=== PATIENT | male | born 1960 ===

== ENCOUNTER 2017-09-09 15:46 | Inpatient (IN) | payer BC ==
--- NOTE | 2017-09-09 16:34 | ED PDOC ---
HPI: Headache <Lucas Newton III - Last Filed: 09/09/17 18:26> Chief Complaint (Provider): Headache, vomiting History Per: Patient History/Exam Limitations: no limitations Onset/Duration Of Symptoms: Hrs Current Symptoms Are (Timing): Still Present Quality: "Pain" Preceeding Symptoms: None Associated Symptoms: Vomiting Additional Complaint(s): 57 y/o M with PMHx of NIDDM, CABG and Hemorrhagic stroke presents to ED with c/ o frontal headache and vomiting since last night. Patient has had 3 vomits since last night NBNB associated with food ingestion. Headache is frontal, moderate, does not radiate and accompanied with mild photophobia. Denies paresthesias, weakness, fever, abd pain, diarrhea. Patient is taking all his meds including Aspirin. He took 1 advil this morning and headache improved temporarily. Denies nausea at this time. BP was measured at home Yesterday and systolic was 180s and as per patient's , came down after vomiting. 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 - Risk Factors SAH Risk Factors: Pos: Sudden Onset Of Pain Nest Degree Relative(s) W/SAH, Polycystic Kidney Disease, Marfan's Syndrome, Patt-Danlos Syndrome, Neurofibromatos, Type I, Worst Headache Of Life <Emilio Crump - Last Filed: 09/09/17 18:48> Time Seen by Provider: 09/09/17 16:19 Chief Complaint (Nursing): GI Problem Past Medical History Vital Signs: Last Vital Signs Temp 97.9 F 09/09/17 16:05 Pulse 79 09/09/17 17:45 Resp 20 09/09/17 17:45 BP 133/72 09/09/17 17:45 Pulse Ox 99 09/09/17 18:09 <Lucas Newton III - Last Filed: 09/09/17 18:26> Reviewed: Vital Signs Vital Signs: Last Vital Signs Temp 97.9 F 09/09/17 16:05 Pulse 77 09/09/17 16:05 Resp 16 09/09/17 16:05 BP 152/86 H 09/09/17 16:05 Pulse Ox 99 09/09/17 16:05 - Medical History PMH: CAD, Diabetes, HTN, Hyperlipidemia Denies: Chronic Kidney Disease - Surgical History Surgical History: CABG - Family History Family History: States: Unknown Family Hx <Emilio Crump - Last Filed: 09/09/17 18:48> - Home Medications Home Medications: Ambulatory Orders Medication Instructions Recorded Aspirin [Ecotrin] 81 mg PO DAILY 09/09/17 Carvedilol [Coreg] 3.125 mg PO Q12H 09/09/17 Cyanocobalamin [Vitamin B12] 250 mcg PO DAILY 09/09/17 Dexlansoprazole [Dexilant] 60 mg PO DAILY 09/09/17 Ergocalciferol (Vitamin D2) 50,000 unit PO SUN 09/09/17 [Vitamin D2] Linagliptin/Metformin HCl 1 tab PO BID 09/09/17 [Jentadueto 2.5 mg-1000 mg Tab] Losartan [Cozaar] 25 mg PO DAILY 09/09/17 Pioglitazone [Actos] 45 mg PO QPM 09/09/17 - Allergies Allergies/Adverse Reactions: Allergies Allergy/AdvReac Type Severity Reaction Status Date / Time No Known Allergies Allergy Verified 10/27/14 08:39 Review of Systems ROS Statement: Except As Marked, All Systems Reviewed And Found Negative Gastrointestinal: Positive for: Vomiting Neurological: Positive for: Headache <Emilio Crump - Last Filed: 09/09/17 18:48> Physical Exam - Physical Exam Appears: Positive for: Non-toxic Skin: Positive for: Normal Color, Warm Eye Exam: Positive for: Normal appearance, EOMI, PERRL, Nystagmus (Horizontal, unidirectional) Neck: Positive for: Normal, Painless ROM, Supple Cardiovascular/Chest: Positive for: Regular Rate, Rhythm. Negative for: Edema, Gallop Respiratory: Positive for: Normal Breath Sounds. Negative for: Crackles, Rales , Wheezing, Respiratory Distress Gastrointestinal/Abdominal: Positive for: Soft. Negative for: Tenderness, Distended, Guarding, Rebound Back: Negative for: L CVA Tenderness, R CVA Tenderness Extremity: Negative for: Tenderness, Swelling Neurologic/Psych: Positive for: Alert, Oriented. Negative for: Motor/Sensory Deficits, Aphasia <Emilio Crump - Last Filed: 09/09/17 18:48> - Laboratory Results Result Diagrams: 09/09/17 16:20 09/09/17 16:20 <Lucas Newton III - Last Filed: 09/09/17 18:26> - Laboratory Results Result Diagrams: 09/09/17 16:20 09/09/17 16:20 - ECG O2 Sat by Pulse Oximetry: 99 - Progress ED Course And Treament: Revaluated at 17:45. Stable. TnI received elevated. Patient denies CP or abd pain. CT of the head pending oficial report to r/o hemorrhagic stroke. Holding anticoag til then. PMD Dr Mantilla made aware. Patient had CABG at [facility] in [facility]. Saw [address] Durbin(Cardiology) more than a year ago for f/u. On aspirin daily. <Emilio Crump - Last Filed: 09/09/17 18:48> Medical Decision Making Medical Decision Making: attending note Pt seen w resident and agree w findings 57yo male w hx CAD also ICH 2014, now on aspirin took today C/o headache, nausea, denies chest pain or dyspnea, denies visual changes or change speech/weakness or sensation EKG nonspecific changes, Q wave inferiorly CT brain acute to subacute infarct occipital 620p D/w Dr Ponce neurology- no contraindication to anticoagulation now 625p d/w Dr Maurer cardiology (pt last saw their group 2014, pt wants to continue w Dr Durbin)- agree w AC start heparin not lovenox Admitted to Dr Mantilla who I spoke to earlier. Critical care time 45minutes. <Lucas Newton III - Last Filed: 09/09/17 18:26> Medical Decision Making: Acute headache and vomiting Hx of hemorrhagic stroke F/U CT head Blood work Toradol once <Emilio Crump - Last Filed: 09/09/17 18:48> Disposition - Patient ED Disposition Is Patient to be Admitted: Yes Counseled Patient/Family Regarding: Studies Performed, Diagnosis - Disposition Disposition Time: 17:45 <Lucas Newton III - Last Filed: 09/09/17 18:26> <Emilio Crump - Last Filed: 09/09/17 18:48> - Clinical Impression Clinical Impression: NSTEMI (non-ST elevated myocardial infarction) - Disposition Condition: FAIR
[2017-09-09 16:46] LABS: BASO # 0.1 K/uL (0.0-0.2); BASO % 1.1 % (0.0-2.0); EOS # 0.1 K/uL (0.0-0.7); EOS % 0.7 % (0.0-4.0); HEMATOCRIT 38.2 % (35.0-51.0); LYMPH % 20.9 % (20.0-40.0); MEAN CELL VOLUME 85.5 fl (80.0-94.0); MEAN CORPUSCULAR HEMOGLOBIN 27.7 pg (27.0-31.0); MEAN CORPUSCULAR HGB CONC 32.4 g/dL (33.0-37.0); MEAN PLATELET VOLUME 9.3 fl (7.2-11.7); MONO # 0.8 K/uL (0.0-0.8); MONO % 8.3 % (0.0-10.0); NEUT # 6.5 K/uL (1.8-7.0); RED CELL DISTRIBUTION WIDTH 13.1 % (11.5-14.5); WHITE BLOOD COUNT 9.4 K/uL (4.8-10.8)
[2017-09-09 16:52] LABS: ALB/GLOB RATIO 1.3 (1.0-2.1); ALKALINE PHOSPHATASE 51 U/L (38-126); ALT/SGPT 24 U/L (21-72); AST/SGOT 19 U/L (17-59); BILIRUBIN,TOTAL 0.6 mg/dl (0.2-1.3); BLOOD UREA NITROGEN 10 mg/dl (9-20); CALCIUM 9.5 mg/dL (8.4-10.2); CARBON DIOXIDE 27 mmol/L (22-30); CHLORIDE 101 mmol/L (98-107); GFR AFRICAN-AMERICAN > 60; GLUCOSE,RANDOM 148 mg/dL (75-110); POTASSIUM 4.1 MMOL/L (3.6-5.0); SODIUM 138 mmol/l (132-148); TOTAL PROTEIN 7.4 G/DL (6.3-8.2)
[2017-09-09 17:12] LABS: PARTIAL THROMBOPLASTIN TIME 29.8 Seconds (25.6-37.1)
--- NOTE | 2017-09-09 18:08 | CT ---
PROCEDURE: CT HEAD WITHOUT CONTRAST. HISTORY: r/o ICH COMPARISON: Head CT 10/27/2014, without contrast. TECHNIQUE: Axial computed tomography images were obtained through the head/brain without intravenous contrast. Radiation dose: Total exam DLP = 861.5 mGy-cm. This CT exam was performed using one or more of the following dose reduction techniques: Automated exposure control, adjustment of the mA and/or kV according to patient size, and/or use of iterative reconstruction technique. FINDINGS: HEMORRHAGE: No intracranial hemorrhage. BRAIN: Cystic encephalomalacia is now seen in the right frontal lobe as residual from prior lobar infarct. Ex vacuo expansion of the right lateral ventricle frontal horn is appreciated in the interval. No positive mass effect is seen throughout this examination. Interval lucency at the medial left occipital lobe is identified suspicious for an acute subacute brain infarct however. Follow-up MRI is advised if possible. Otherwise, CT can be performed. The brainstem and cerebellum remain unremarkable grossly. No significant positive mass effect throughout the exam. VENTRICLES: Unremarkable. No hydrocephalus. CALVARIUM: Unremarkable. PARANASAL SINUSES: Unremarkable as visualized. No significant inflammatory changes. MASTOID AIR CELLS: Unremarkable as visualized. No inflammatory changes. OTHER FINDINGS: None. IMPRESSION: 1. Chronic infra right frontal lobe now identified. An interval acute or subacute infarct is seen the left occipital lobe for which follow-up CT or MRI is advised. MRI will better define the extent of this infarct. No definite intracranial hemorrhage or positive mass effect is grossly appreciable at this time. 2. No additional suspicious interval findings.
[2017-09-09] MEDS ORDERED: Heparin 25,000units in D5W 25,000 UNITS/250 ML BAG IV SCH (18:45)
[2017-09-09 20:48] LABS: RBC URINE 1 /hpf (0-3); URINE BILIRUBIN NEGATIVE (NEGATIVE); URINE BLOOD NEGATIVE (NEGATIVE); URINE COLOR YELLOW (YELLOW); URINE GLUCOSE (UA) NEG (Normal); URINE KETONE 20 mg/dL (NEGATIVE); URINE LEUKOCYTE ESTERASE NEG Leu/uL (Negative); URINE PROTEIN NEGATIVE (NEGATIVE); URINE UROBILINOGEN 0.2-1.0 mg/dL (0.2-1.0); WBC URINE 1 /hpf (0-5)
--- NOTE | 2017-09-09 23:54 | CP.PCM.HP ---
History of Present Illness - History of Present Illness History of Present Illness: This is a 57 y/o male admitted for recurrent headache followed by vomiting since last night and noted to have non STEMI He first started having intractable headaches followed by vomiting last night which resolved after vomiting only to recur again today. Noted elevated BP every time he has headaches. At the ER noted to have NSTEMI with elevated troponin.CT scan of the brain showed occipital infarct. He had seen Dr Miguelina Durbin where he had a normal stress test. He denies any chest pain or SOB Medical hx HTN DM 2 Hyperlipidemia hgic CVA 2 years ago. Present on Admission - Present on Admission Any Indicators Present on Admission: No History of DVT/PE: No History of Uncontrolled Diabetes: Yes Urinary Catheter: No Decubitus Ulcer Present: No Past Patient History - Past Medical History & Family History Past Medical History?: Yes - Past Social History Smoking Status: Never Smoked - CARDIAC Hx Cardiac Disorders: Yes - PULMONARY Hx Respiratory Disorders: No - NEUROLOGICAL Hx Neurological Disorder: Yes - HEENT Hx HEENT Problems: No - RENAL Hx Chronic Kidney Disease: No - ENDOCRINE/METABOLIC Hx Endocrine Disorders: Yes Hx Diabetes Insipidus: Yes Hx Diabetes Mellitus Type 2: Yes - HEMATOLOGICAL/ONCOLOGICAL Hx Blood Disorders: No - INTEGUMENTARY Hx Dermatological Problems: No - MUSCULOSKELETAL/RHEUMATOLOGICAL Hx Musculoskeletal Disorders: No Hx Falls: No - GASTROINTESTINAL Hx Gastrointestinal Disorders: No - GENITOURINARY/GYNECOLOGICAL Hx Genitourinary Disorders: No - PSYCHIATRIC Hx Psychophysiologic Disorder: No Hx Substance Use: No - SURGICAL HISTORY Hx Coronary Artery Bypass Graft: Yes - ANESTHESIA Hx Anesthesia: Yes Hx Anesthesia Reactions: No Hx Malignant Hyperthermia: No Meds Allergies/Adverse Reactions: Allergies Allergy/AdvReac Type Severity Reaction Status Date / Time No Known Allergies Allergy Verified 10/27/14 08:39 Physical Exam - Head Exam Head Exam: NORMAL INSPECTION - Eye Exam Eye Exam: Normal appearance - ENT Exam ENT Exam: Mucous Membranes Moist - Respiratory Exam Respiratory Exam: NORMAL BREATHING PATTERN - Cardiovascular Exam Cardiovascular Exam: REGULAR RHYTHM - GI/Abdominal Exam GI & Abdominal Exam: Normal Bowel Sounds - Neurological Exam Neurological exam: CN II-XII Intact, Oriented x3 Results - Vital Signs Recent Vital Signs: Last Vital Signs Temp 97.9 F 09/09/17 16:05 Pulse 80 09/09/17 23:28 Resp 17 09/09/17 21:13 BP 141/82 09/09/17 23:28 Pulse Ox 96 09/09/17 20:08 - Labs Result Diagrams: 09/09/17 16:20 09/09/17 16:20 Labs: Laboratory Results - last 24 hr 09/09/17 09/09/17 09/09/17 16:20 16:20 16:20 WBC 9.4 RBC 4.47 Hgb 12.4 Hct 38.2 MCV 85.5 MCH 27.7 MCHC 32.4 L RDW 13.1 Plt Count 272 MPV 9.3 Neut % (Auto) 69.0 Lymph % (Auto) 20.9 [place] % (Auto) 8.3 Eos % (Auto) 0.7 Baso % (Auto) 1.1 Neut # 6.5 Lymph # 2.0 J[place] # 0.8 Eos # 0.1 Baso # 0.1 PT 12.2 INR 1.1 APTT 29.8 Sodium 138 Potassium 4.1 Chloride 101 Carbon Dioxide 27 Anion Gap 14 BUN 10 Creatinine 0.9 Est GFR ( Amer) > 60 Est GFR (Non-Af Amer) > 60 POC Glucose (mg/dL) Random Glucose 148 H Calcium 9.5 Total Bilirubin 0.6 AST 19 ALT 24 Alkaline Phosphatase 51 Troponin I 2.2400 H* Total Protein 7.4 Albumin 4.2 Globulin 3.2 Albumin/Globulin Ratio 1.3 Urine Color Urine Clarity Urine pH Ur Specific [place] Urine Protein Urine Glucose (UA) Urine Ketones Urine Blood Urine Nitrate Urine Bilirubin Urine Urobilinogen Ur Leukocyte Esterase Urine RBC (Auto) Urine Microscopic WBC 09/09/17 09/09/17 20:00 22:51 WBC RBC Hgb Hct MCV MCH MCHC RDW Plt Count MPV Neut % (Auto) Lymph % (Auto) [place] % (Auto) Eos % (Auto) Baso % (Auto) Neut # Lymph # [place] # Eos # Baso # PT INR APTT Sodium Potassium Chloride Carbon Dioxide Anion Gap BUN Creatinine Est GFR ( Amer) Est GFR (Non-Af Amer) POC Glucose (mg/dL) 113 H Random Glucose Calcium Total Bilirubin AST ALT Alkaline Phosphatase Troponin I Total Protein Albumin Globulin Albumin/Globulin Ratio Urine Color Yellow Urine Clarity Clear Urine pH 6.0 Ur Specific [place] 1.016 Urine Protein Negative Urine Glucose (UA) Neg Urine Ketones 20 Urine Blood Negative Urine Nitrate Negative Urine Bilirubin Negative Urine Urobilinogen 0.2-1.0 Ur Leukocyte Esterase Neg Urine RBC (Auto) 1 Urine Microscopic WBC 1 Assessment & Plan (1) Cerebrovascular accident (CVA) due to embolism of posterior cerebral artery with infarctions of both occipital lobes Status: Acute (2) NSTEMI (non-ST elevated myocardial infarction) Status: Acute (3) CAD (coronary artery disease) Status: Acute (4) DM type 2 (diabetes mellitus, type 2) Status: Acute - Assessment and Plan (Free Text) Plan: Con tmeds given heparin neuro eval cardiology eval telemetry cont meds
[2017-09-10 03:07] LABS: PARTIAL THROMBOPLASTIN TIME 41.3 Seconds (25.6-37.1)
[2017-09-10] MEDS ORDERED: Heparin 25,000units in D5W 25,000 UNITS/250 ML BAG IV SCH (04:30)
[2017-09-10 05:30] LABS: HEMATOCRIT 36.6 % (35.0-51.0); MEAN CELL VOLUME 84.6 fl (80.0-94.0); MEAN CORPUSCULAR HEMOGLOBIN 28.4 pg (27.0-31.0); MEAN CORPUSCULAR HGB CONC 33.5 g/dL (33.0-37.0); RED CELL DISTRIBUTION WIDTH 13.3 % (11.5-14.5); WHITE BLOOD COUNT 8.9 K/uL (4.8-10.8)
[2017-09-10 06:22] LABS: ALB/GLOB RATIO 1.1 (1.0-2.1); ALKALINE PHOSPHATASE 49 U/L (38-126); ALT/SGPT 30 U/L (21-72); AST/SGOT 21 U/L (17-59); BILIRUBIN,TOTAL 0.7 mg/dl (0.2-1.3); BLOOD UREA NITROGEN 11 mg/dl (9-20); CALCIUM 9.2 mg/dL (8.4-10.2); CARBON DIOXIDE 26 mmol/L (22-30); CHLORIDE 104 mmol/L (98-107); CHOLESTEROL 151 mg/dL (0-199); GFR AFRICAN-AMERICAN > 60; GLUCOSE,RANDOM 134 mg/dL (75-110); SODIUM 139 mmol/l (132-148)
[2017-09-10 06:46] LABS: THYROID STIMULATING HORMONE 0.38 mIU/ML (0.46-4.68)
[2017-09-10 07:36] LABS: CHOLESTEROL 154 mg/dL (0-199)
--- NOTE | 2017-09-10 08:40 | PN ---
DATE: 09/10/2017 SUBJECTIVE: The patient is seen and examined. The patient is seen for Dr. Mantilla while he is away. The patient remains in Progressive Care Unit on telemetry monitoring. The patient feels okay. Denies any chest pain or shortness of breath or dizziness. REVIEW OF SYSTEMS: Otherwise is negative. PHYSICAL EXAMINATION: GENERAL: The patient is in no acute distress. VITAL SIGNS: Stable. HEART: S1 and S2, normal and regular. LUNGS: Good bilateral air exchange. ABDOMEN: Soft, nontender. EXTREMITIES: No edema. No calf swelling. No tenderness. No acute ischemia. CENTRAL NERVOUS SYSTEM: Essentially unchanged. DIAGNOSTIC DATA: Available diagnostic data reviewed. Troponin 2 sets are positive with high level of 2.2. Telemetry monitoring does not reveal significant arrhythmias. ASSESSMENT AND PLAN: Overall, the patient has acute [id number]-MA-[id number] myocardial infarction. Cardiology consult is pending. Plan as ordered. Case and plan discussed with the patient. Amanuel Mane MD
[2017-09-10] MEDS: Pantoprazole 40 mg EC Tab PO SCH (09:22)
[2017-09-10] MEDS: CYANOCOBALAMIN 500 MCG TAB PO SCH (09:23)
[2017-09-10] MEDS ORDERED: Perflutren Lipid Microsphere 1.5 ML SUS IV ONE (11:39)
--- NOTE | 2017-09-10 11:59 | MRI ---
PROCEDURE: MRI BRAIN WITHOUT CONTRAST HISTORY: stroke new COMPARISON: Head CT without contrast 09/09/2017. TECHNIQUE: Multiplanar, multisequence MR images of the brain were obtained without intravenous contrast enhancement. FINDINGS: HEMORRHAGE: None DWI: Restricted diffusion is appreciate the medial left occipital lobe corresponding to the lucency seen in left occipital lobe prior head CT 09/09/2017. No additional evidence of an acute or subacute infarction is appreciated. BRAIN PARENCHYMA: Limited local mass-effect is appreciated effacing sulci at the left occipital lobe somewhat. No midline shift is appreciable or crowding of the basilar cisterns. Chronic lobar infarctions in the right frontal lobe are again appreciated and limited chronic microangiopathy is appreciated in the periventricular and centrum semiovale white matter spaces primarily at the level of the frontal and parietal lobes bilaterally. No suspicious extra-axial collections identified posterior fossa contents appear unremarkable. Delete VENTRICLES: Unremarkable. No hydrocephalus. CRANIUM: Unremarkable. ORBITS: Grossly unremarkable. PARANASAL SINUSES/MASTOIDS: Clear VASCULAR SYSTEM: Skull base flow voids intact. OTHER FINDINGS: None. IMPRESSION: 1. Acute or subacute small lobar infarction medial left occipital lobe. Limited local mass effect identified. 2. Two chronic lobar infarctions are identified at the right frontal lobe superiorly and inferiorly. 3. Age-related neuro degenerative changes are identified.
--- NOTE | 2017-09-10 14:03 | CARD ---
APPROVED REPORT EXAM: Two-dimensional and M-mode echocardiogram with Doppler, color Doppler with contrast. Other Information Quality : GoodRhythm : NSR INDICATION Non STEMI Echo Enhancing Agent Indication: Endocardial border delineation Agent/Amount Used: Definity Surgery/Intervention CABD DIMENSIONS IVSd0.94 (0.7-1.1cm)LVDd4.94 (3.9-5.9cm) LVOT Diameter2.36 (1.8-2.4cm)PWd0.97 (0.7-1.1cm) IVSs0.91 (0.8-1.2cm)LVDs4.57 (2.5-4.0cm) FS (%) 7.6 %PWs0.84 (0.8-1.2cm) M-Mode DIMENSIONS Left Atrium (MM)3.65 (2.5-4.0cm)IVSd0.85 (0.7-1.1cm) Aortic Root4.12 (2.2-3.7cm)LVDd6.71 (4.0-5.6cm) Aortic Cusp Exc.2.12 (1.5-2.0cm)PWd0.91 (0.7-1.1cm) IVSs1.12 cmFS (%) 19 % LVDs5.44 (2.0-3.8cm)PWs1.26 cm Mitral Valve MV E Elvltmbf23.4cm/sMV DECEL [id number] A Ltpxlwds39.8cm/s MV ELD72boQ/A ratio1.4MVA (PHT)4.36cm2 TDI Lateral E' Peak V11.33cm/sMedial E' Peak V7.09cm/sE/Lateral E'6.0 E/Medial E'9.6 Pulmonary Valve PV Peak Vpdfytwp41.4cm/s LEFT VENTRICLE The left ventricle is normal size. There is normal left ventricular wall thickness. Left ventricle systolic function is mildly to moderately impaired. The Ejection Fraction is 40-45%. Apical and Septal hypokinesis The left ventricular diastolic function is normal. RIGHT VENTRICLE The right ventricle is normal size. There is normal right ventricular wall thickness. The right ventricular systolic function is normal. ATRIA The left atrium size is normal. The right atrium size is normal. AORTIC VALVE The aortic valve is mildly thickened. No aortic regurgitation is present. There is no aortic valvular stenosis. MITRAL VALVE The mitral valve is mildly thickened. There is no mitral valve stenosis. Mitral regurgitation is trace. TRICUSPID VALVE The tricuspid valve is normal in structure. There is trace tricuspid regurgitation. PULMONIC VALVE The pulmonary valve is normal in structure. There is no pulmonic valvular regurgitation. GREAT VESSELS The aortic root is normal in size. The IVC was not visualized. PERICARDIAL EFFUSION The pericardium appears normal. <Conclusion> The left ventricle is normal size. There is normal left ventricular wall thickness. Left ventricle systolic function is mildly to moderately impaired. The Ejection Fraction is 40-45%. Apical and Septal hypokinesis
[2017-09-10] MEDS: Heparin 25,000units in D5W 25,000 UNITS/250 ML BAG IV SCH (15:25)
--- NOTE | 2017-09-10 15:32 | US ---
PROCEDURE: Duplex ultrasound of the carotid and vertebral arteries. HISTORY: assess stenosis COMPARISON: None available. TECHNIQUE: Grayscale and duplex Doppler evaluation of the cervical carotid and vertebral arteries were performed. The common carotid, carotid bifurcations and cervical ICA and proximal ECA were evaluated. The vertebral arteries were evaluated for gross patency and direction. FINDINGS: RIGHT CAROTID ARTERIES: Common Carotid Artery: Normal. Maximal flow velocity of 73.2 cm/s. Carotid Bifurcation: Focal plaque partially calcified. Internal Carotid Artery:Heterogeneous plaque formation. Maximal flow velocity of 71.0 cm/s. Tortuous right ICA External Carotid Artery (proximal branches): Normal. Maximal flow velocity of 79.0 cm/s. ICA/CCA Ratio: 1.0 LEFT CAROTID ARTERIES: Common Carotid Artery: Intimal thickening is present Maximal flow velocity of 100.4 cm/s. Carotid Bifurcation: Heterogeneous partially calcified plaque Internal Carotid Artery:Heterogeneous plaque formation. Maximal flow velocity of 90.1 cm/s. External Carotid Artery (proximal branches): Normal. Maximal flow velocity of 80.1 cm/s. ICA/CCA Ratio: 1.0 VERTEBRAL ARTERIES: Right Vertebral Artery: Patent. Antegrade flow. Left Vertebral Artery: Patent. Antegrade flow. OTHER FINDINGS: None. IMPRESSION: Right ICA degree of stenosis: Less than 50% Left ICA degree of stenosis: Less than 50% Reference Internal Carotid Artery (ICA) Peak Systolic Velocity (PSV) for above: 1. Less than 50% stenosis less than 125 cm/s peak systolic velocity 2. 50-69% stenosis 125-230cm/s peak systolic velocity 3. Greater than 70% but less than near occlusion greater than 230 cm/s peak systolic velocity
--- NOTE | 2017-09-10 16:21 | CP.PCM.CON ---
History of Present Illness - History of Present Illness History of Present Illness: 57 y/o male with PMHx of HTN, DM, CAD s/p CABG in [facility] 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 Patient had 2 episodes of vomiting but denies chest pain, SOB or palpitations.Patient took his BP and as per was elevated to 180 systolic.Upon arrival to Ed his headache was improved. Blood work in ED included Troponin which was reported positive 2.2. ECG was consistence with SR and possible IWMI but with no acute changes. We were requested to see patient for cardiac evaluation. Patient underwent an Stress test and ECHO [id number] ,both tests were normal as per patient. Review of Systems - Constitutional Constitutional: Headache - EENT Eyes: As Per HPI - Cardiovascular Cardiovascular: As Per HPI - Respiratory Respiratory: As Per HPI - Gastrointestinal Gastrointestinal: Constipation, Vomiting - Genitourinary Genitourinary: As Per HPI - Musculoskeletal Musculoskeletal: Muscle Cramps, Myalgias - Neurological Neurological: Headaches - Psychiatric Psychiatric: Depression Past Patient History - Infectious Disease Hx of Infectious Diseases: None - Tetanus Immunizations Tetanus Immunization: Unknown - Past Medical History & Family History Past Medical History?: Yes Past Family History: Reviewed and not pertinent - Past Social History Smoking Status: Never Smoked Alcohol: None Drugs: Denies - CARDIAC Hx Cardiac Disorders: Yes Hx Hypertension: Yes - PULMONARY Hx Respiratory Disorders: No - NEUROLOGICAL HX Cerebrovascular Accident: Yes - HEENT Hx HEENT Problems: No Hx Blind: No - RENAL Hx Chronic Kidney Disease: No - ENDOCRINE/METABOLIC Hx Diabetes Mellitus Type 2: Yes - HEMATOLOGICAL/ONCOLOGICAL Hx Blood Disorders: No Hx Cancer: No - INTEGUMENTARY Hx Dermatological Problems: No - MUSCULOSKELETAL/RHEUMATOLOGICAL Hx Musculoskeletal Disorders: No Hx Falls: No - GASTROINTESTINAL Hx Gastrointestinal Disorders: Yes Hx Nausea: Yes Hx Vomiting: Yes - GENITOURINARY/GYNECOLOGICAL Hx Genitourinary Disorders: No - PSYCHIATRIC Hx Psychophysiologic Disorder: No Hx Substance Use: No - SURGICAL HISTORY Hx Coronary Artery Bypass Graft: Yes - ANESTHESIA Hx Anesthesia: Yes Hx Anesthesia Reactions: No Hx Malignant Hyperthermia: No Meds Allergies/Adverse Reactions: Allergies Allergy/AdvReac Type Severity Reaction Status Date / Time No Known Allergies Allergy Verified 10/27/14 08:39 - Medications Medications: Current Medications Aspirin (Ecotrin) 81 mg PO DAILY [facility] Last Admin: 09/10/17 09:20 Dose: 81 mg Atorvastatin Calcium (Lipitor) 40 mg PO DAILY [facility] Last Admin: 09/10/17 12:50 Dose: 40 mg Carvedilol (Coreg) 3.125 mg PO Q12H [facility] Last Admin: 09/10/17 09:46 Dose: 3.125 mg Cyanocobalamin (Vitamin B12) 250 mcg PO DAILY [facility] Last Admin: 09/10/17 09:23 Dose: 250 mcg Ergocalciferol (Drisdol 50,000 Intl Units Cap) 1 cap PO SUN [facility] Heparin Sodium/Dextrose (Heparin 25,000 Units/250ml In D5w) 25,000 units in 250 mls @ 14 mls/hr IV .[id number] [facility] PRN Reason: Protocol Last Admin: 09/10/17 15:25 Dose: 14 mls/hr Losartan Potassium (Cozaar) 25 mg PO DAILY [facility] Last Admin: 09/10/17 09:33 Dose: Not Given Metformin HCl (Glucophage) 1,000 mg PO BID [facility] Last Admin: 09/10/17 09:39 Dose: 1,000 mg Pantoprazole Sodium (Protonix Ec Tab) 40 mg PO DAILY [facility] Last Admin: 09/10/17 09:22 Dose: 40 mg Pioglitazone HCl (Actos) 45 mg PO QPM [facility] Sitagliptin Phosphate (Januvia) 100 mg PO DAILY [facility] Last Admin: 09/10/17 09:20 Dose: 100 mg Physical Exam - Constitutional Appears: Well, Non-toxic, No Acute Distress - Head Exam Head Exam: ATRAUMATIC, NORMOCEPHALIC - Eye Exam Eye Exam: EOMI, Normal appearance - ENT Exam ENT Exam: Normal Exam - Neck Exam Neck exam: Positive for: Full Rom - Respiratory Exam Respiratory Exam: Clear to Auscultation Bilateral - Cardiovascular Exam Cardiovascular Exam: REGULAR RHYTHM - GI/Abdominal Exam GI & Abdominal Exam: Normal Bowel Sounds - Rectal Exam Rectal Exam: Deferred - Extremities Exam Extremities exam: Positive for: full ROM, normal inspection - Back Exam Back exam: NORMAL INSPECTION - Neurological Exam Neurological exam: Alert, Oriented x3 - Psychiatric Exam Psychiatric exam: Normal Affect, Normal Mood - Skin Skin Exam: Normal Color Results - Vital Signs Recent Vital Signs: Last Vital Signs Temp 98.0 F 09/10/17 15:54 Pulse 78 09/10/17 15:54 Resp 20 12/15/17 15:54 BP 106/68 09/10/17 15:54 Pulse Ox 96 09/10/17 15:54 - Labs Result Diagrams: 09/10/17 04:35 09/10/17 04:35 Labs: Laboratory Results - last 24 hr 09/09/17 09/09/17 09/09/17 16:20 16:20 16:20 WBC 9.4 RBC 4.47 Hgb 12.4 Hct 38.2 MCV 85.5 MCH 27.7 MCHC 32.4 L RDW 13.1 Plt Count 272 MPV 9.3 Neut % (Auto) 69.0 Lymph % (Auto) 20.9 Lewis % (Auto) 8.3 Eos % (Auto) 0.7 Baso % (Auto) 1.1 Neut # 6.5 Lymph # 2.0 Lewis # 0.8 Eos # 0.1 Baso # 0.1 ESR PT 12.2 INR 1.1 APTT 29.8 Sodium 138 Potassium 4.1 Chloride 101 Carbon Dioxide 27 Anion Gap 14 BUN 10 Creatinine 0.9 Est GFR ( Amer) > 60 Est GFR (Non-Af Amer) > 60 POC Glucose (mg/dL) Random Glucose 148 H Hemoglobin A1c Calcium 9.5 Total Bilirubin 0.6 AST 19 ALT 24 Alkaline Phosphatase 51 Troponin I 2.2400 H* C-React Prot High Sens Total Protein 7.4 Albumin 4.2 Globulin 3.2 Albumin/Globulin Ratio 1.3 Triglycerides Cholesterol LDL Cholesterol Direct HDL Cholesterol Vitamin B12 TSH 3rd Generation Urine Color Urine Clarity Urine pH Ur Specific Cyril Urine Protein Urine Glucose (UA) Urine Ketones Urine Blood Urine Nitrate Urine Bilirubin Urine Urobilinogen Ur Leukocyte Esterase Urine RBC (Auto) Urine Microscopic WBC 09/09/17 09/09/17 09/10/17 20:00 22:51 02:00 WBC RBC Hgb Hct MCV MCH MCHC RDW Plt Count MPV Neut % (Auto) Lymph % (Auto) Lewis % (Auto) Eos % (Auto) Baso % (Auto) Neut # Lymph # Lewis # Eos # Baso # ESR PT INR APTT Sodium Potassium Chloride Carbon Dioxide Anion Gap BUN Creatinine Est GFR ( Amer) Est GFR (Non-Af Amer) POC Glucose (mg/dL) 113 H Random Glucose Hemoglobin A1c Calcium Total Bilirubin AST ALT Alkaline Phosphatase Troponin I 2.2900 H* C-React Prot High Sens Total Protein Albumin Globulin Albumin/Globulin Ratio Triglycerides Cholesterol LDL Cholesterol Direct HDL Cholesterol Vitamin B12 TSH 3rd Generation Urine Color Yellow Urine Clarity Clear Urine pH 6.0 Ur Specific Cyril 1.016 Urine Protein Negative Urine Glucose (UA) Neg Urine Ketones 20 Urine Blood Negative Urine Nitrate Negative Urine Bilirubin Negative Urine Urobilinogen 0.2-1.0 Ur Leukocyte Esterase Neg Urine RBC (Auto) 1 Urine Microscopic WBC 1 09/10/17 09/10/17 09/10/17 02:00 04:35 04:35 WBC 8.9 RBC 4.33 L Hgb 12.3 Hct 36.6 MCV 84.6 MCH 28.4 MCHC 33.5 RDW 13.3 Plt Count 278 MPV Neut % (Auto) Lymph % (Auto) Lewis % (Auto) Eos % (Auto) Baso % (Auto) Neut # Lymph # Lewis # Eos # Baso # ESR PT 12.5 INR 1.1 APTT 41.3 H D Sodium 139 Potassium 4.0 Chloride 104 Carbon Dioxide 26 Anion Gap 13 BUN 11 Creatinine 0.9 Est GFR ( Amer) > 60 Est GFR (Non-Af Amer) > 60 POC Glucose (mg/dL) Random Glucose 134 H Hemoglobin A1c Calcium 9.2 Total Bilirubin 0.7 AST 21 ALT 30 Alkaline Phosphatase 49 Troponin I C-React Prot High Sens Total Protein 7.0 Albumin 3.7 Globulin 3.3 Albumin/Globulin Ratio 1.1 Triglycerides 113 Cholesterol 151 LDL Cholesterol Direct 92 HDL Cholesterol 31 Vitamin B12 TSH 3rd Generation 0.38 L Urine Color Urine Clarity Urine pH Ur Specific Cyril Urine Protein Urine Glucose (UA) Urine Ketones Urine Blood Urine Nitrate Urine Bilirubin Urine Urobilinogen Ur Leukocyte Esterase Urine RBC (Auto) Urine Microscopic WBC 09/10/17 09/10/17 09/10/17 04:35 05:39 06:31 WBC RBC Hgb Hct MCV MCH MCHC RDW Plt Count MPV Neut % (Auto) Lymph % (Auto) Lewis % (Auto) Eos % (Auto) Baso % (Auto) Neut # Lymph # Lewis # Eos # Baso # ESR 42 H PT INR APTT Sodium Potassium Chloride Carbon Dioxide Anion Gap BUN Creatinine Est GFR ( Amer) Est GFR (Non-Af Amer) POC Glucose (mg/dL) 118 H Random Glucose Hemoglobin A1c 6.6 H Calcium Total Bilirubin AST ALT Alkaline Phosphatase Troponin I C-React Prot High Sens Total Protein Albumin Globulin Albumin/Globulin Ratio Triglycerides Cholesterol LDL Cholesterol Direct HDL Cholesterol Vitamin B12 TSH 3rd Generation Urine Color Urine Clarity Urine pH Ur Specific Cyril Urine Protein Urine Glucose (UA) Urine Ketones Urine Blood Urine Nitrate Urine Bilirubin Urine Urobilinogen Ur Leukocyte Esterase Urine RBC (Auto) Urine Microscopic WBC 09/10/17 09/10/17 09/10/17 06:31 07:17 07:45 WBC RBC Hgb Hct MCV MCH MCHC RDW Plt Count MPV Neut % (Auto) Lymph % (Auto) Lewis % (Auto) Eos % (Auto) Baso % (Auto) Neut # Lymph # Lewis # Eos # Baso # ESR PT INR APTT Sodium Potassium Chloride Carbon Dioxide Anion Gap BUN Creatinine Est GFR ( Amer) Est GFR (Non-Af Amer) POC Glucose (mg/dL) Random Glucose Hemoglobin A1c Calcium Total Bilirubin AST ALT Alkaline Phosphatase Troponin I 2.1400 H* C-React Prot High Sens 10.73 H Total Protein Albumin Globulin Albumin/Globulin Ratio Triglycerides 114 Cholesterol 154 LDL Cholesterol Direct 94 HDL Cholesterol 32 Vitamin B12 365 TSH 3rd Generation Urine Color Urine Clarity Urine pH Ur Specific Cyril Urine Protein Urine Glucose (UA) Urine Ketones Urine Blood Urine Nitrate Urine Bilirubin Urine Urobilinogen Ur Leukocyte Esterase Urine RBC (Auto) Urine Microscopic WBC 09/10/17 13:38 WBC RBC Hgb Hct MCV MCH MCHC RDW Plt Count MPV Neut % (Auto) Lymph % (Auto) Lewis % (Auto) Eos % (Auto) Baso % (Auto) Neut # Lymph # Lewis # Eos # Baso # ESR PT INR APTT 41.4 H Sodium Potassium Chloride Carbon Dioxide Anion Gap BUN Creatinine Est GFR ( Amer) Est GFR (Non-Af Amer) POC Glucose (mg/dL) Random Glucose Hemoglobin A1c Calcium Total Bilirubin AST ALT Alkaline Phosphatase Troponin I C-React Prot High Sens Total Protein Albumin Globulin Albumin/Globulin Ratio Triglycerides Cholesterol LDL Cholesterol Direct HDL Cholesterol Vitamin B12 TSH 3rd Generation Urine Color Urine Clarity Urine pH Ur Specific Cyril Urine Protein Urine Glucose (UA) Urine Ketones Urine Blood Urine Nitrate Urine Bilirubin Urine Urobilinogen Ur Leukocyte Esterase Urine RBC (Auto) Urine Microscopic WBC - EKG Data EKG Interpreted by: Myself (NSR , possible IWMI age?) - Imaging and Cardiology CT scan - head Status: Report reviewed by me Chest x-ray Status: Report reviewed by me MRI - head Status: Report reviewed by me Assessment & Plan - Assessment and Plan (Free Text) Assessment: 1 NSTEMI 2 CVA 3 HTN 4 DM 5 CAD s/p CABG. PLAN: 1 Review office records 2 See orders. 3 Consider Cardiac Cath once patient neurological stable. 4 Will follow. - Date & Time Date: 09/10/17 Time: 16:33
--- NOTE | 2017-09-10 18:30 | CARD ---
APPROVED REPORT EKG Measurement Heart [id number] <Conclusion> Normal sinus rhythm Inferior infarct, age undetermined Abnormal ECG
--- NOTE | 2017-09-10 18:31 | CARD ---
APPROVED REPORT EKG Measurement Heart [id number] <Conclusion> Normal sinus rhythm Inferior infarct, age undetermined Abnormal ECG
[2017-09-11 06:39] LABS: HEMATOCRIT 36.2 % (35.0-51.0); MEAN CELL VOLUME 84.3 fl (80.0-94.0); MEAN CORPUSCULAR HEMOGLOBIN 28.4 pg (27.0-31.0); MEAN CORPUSCULAR HGB CONC 33.7 g/dL (33.0-37.0); RED CELL DISTRIBUTION WIDTH 13.2 % (11.5-14.5)
[2017-09-11 07:09] LABS: ALB/GLOB RATIO 1.2 (1.0-2.1); ALKALINE PHOSPHATASE 48 U/L (38-126); ALT/SGPT 29 U/L (21-72); AST/SGOT 32 U/L (17-59); BILIRUBIN,TOTAL 0.6 mg/dl (0.2-1.3); BLOOD UREA NITROGEN 12 mg/dl (9-20); CARBON DIOXIDE 29 mmol/L (22-30); CHLORIDE 104 mmol/L (98-107); GFR AFRICAN-AMERICAN > 60; GLUCOSE,RANDOM 132 mg/dL (75-110); POTASSIUM 4.2 MMOL/L (3.6-5.0); SODIUM 141 mmol/l (132-148); TOTAL PROTEIN 6.9 G/DL (6.3-8.2)
--- NOTE | 2017-09-11 07:29 | CP.PCM.CON ---
History of Present Illness - History of Present Illness History of Present Illness: CONSULT DICTATED NEW ASYMPTOMATIC LEFT HEAD [employer]PER[employer] STROKE CONT HEPARIN FOR CARDIAC POINT KEEP PTT 50-60 REST RECOMMENDED Past Patient History - Infectious Disease Hx of Infectious Diseases: None - Tetanus Immunizations Tetanus Immunization: Unknown - Past Medical History & Family History Past Medical History?: Yes Past Family History: Reviewed and not pertinent - Past Social History Smoking Status: Never Smoked Alcohol: None Drugs: Denies - CARDIAC Hx Cardiac Disorders: Yes Hx Hypertension: Yes - PULMONARY Hx Respiratory Disorders: No - NEUROLOGICAL HX Cerebrovascular Accident: Yes - HEENT Hx HEENT Problems: No Hx Blind: No - RENAL Hx Chronic Kidney Disease: No - ENDOCRINE/METABOLIC Hx Diabetes Mellitus Type 2: Yes - HEMATOLOGICAL/ONCOLOGICAL Hx Blood Disorders: No Hx Cancer: No - INTEGUMENTARY Hx Dermatological Problems: No - MUSCULOSKELETAL/RHEUMATOLOGICAL Hx Musculoskeletal Disorders: No Hx Falls: No - GASTROINTESTINAL Hx Gastrointestinal Disorders: Yes Hx Nausea: Yes Hx Vomiting: Yes - GENITOURINARY/GYNECOLOGICAL Hx Genitourinary Disorders: No - PSYCHIATRIC Hx Psychophysiologic Disorder: No Hx Substance Use: No - SURGICAL HISTORY Hx Coronary Artery Bypass Graft: Yes - ANESTHESIA Hx Anesthesia: Yes Hx Anesthesia Reactions: No Hx Malignant Hyperthermia: No Meds Allergies/Adverse Reactions: Allergies Allergy/AdvReac Type Severity Reaction Status Date / Time No Known Allergies Allergy Verified 10/27/14 08:39 - Medications Medications: Current Medications Aspirin (Ecotrin) 81 mg PO DAILY [facility] Last Admin: 09/10/17 09:20 Dose: 81 mg Atorvastatin Calcium (Lipitor) 40 mg PO DAILY [facility] Last Admin: 09/10/17 12:50 Dose: 40 mg Carvedilol (Coreg) 3.125 mg PO Q12H [facility] Last Admin: 09/10/17 22:25 Dose: 3.125 mg Cyanocobalamin (Vitamin B12) 250 mcg PO DAILY [facility] Last Admin: 09/10/17 09:23 Dose: 250 mcg Ergocalciferol (Drisdol 50,000 Intl Units Cap) 1 cap PO SUN [facility] Heparin Sodium/Dextrose (Heparin 25,000 Units/250ml In D5w) 25,000 units in 250 mls @ 14 mls/hr IV .[id number] [facility] PRN Reason: Protocol Last Admin: 09/10/17 15:25 Dose: 14 mls/hr Losartan Potassium (Cozaar) 25 mg PO DAILY [facility] Last Admin: 09/10/17 09:33 Dose: Not Given Metformin HCl (Glucophage) 1,000 mg PO BID [facility] Last Admin: 09/10/17 09:39 Dose: 1,000 mg Pantoprazole Sodium (Protonix Ec Tab) 40 mg PO DAILY [facility] Last Admin: 09/10/17 09:22 Dose: 40 mg Pioglitazone HCl (Actos) 45 mg PO QPM [facility] Last Admin: 09/10/17 17:45 Dose: 45 mg Sitagliptin Phosphate (Januvia) 100 mg PO DAILY [facility] Last Admin: 09/10/17 09:20 Dose: 100 mg Results - Vital Signs Recent Vital Signs: Last Vital Signs Temp 98.5 F 09/11/17 05:00 Pulse 73 09/11/17 05:00 Resp 18 09/11/17 05:00 BP 113/73 09/11/17 05:00 Pulse Ox 98 09/11/17 05:00 - Labs Result Diagrams: 09/11/17 05:45 09/11/17 05:45 Labs: Laboratory Results - last 24 hr 09/10/17 09/10/17 09/10/17 04:35 06:31 06:31 WBC RBC Hgb Hct MCV MCH MCHC RDW Plt Count ESR 42 H APTT Factor V Sodium Potassium Chloride Carbon Dioxide Anion Gap BUN Creatinine Est GFR ( Amer) Est GFR (Non-Af Amer) POC Glucose (mg/dL) Random Glucose Hemoglobin A1c 6.6 H Calcium Total Bilirubin AST ALT Alkaline Phosphatase Troponin I C-React Prot High Sens 10.73 H Total Protein Albumin Globulin Albumin/Globulin Ratio Triglycerides Cholesterol LDL Cholesterol Direct HDL Cholesterol Vitamin B12 RPR MTHFR DNA Mutation Anal MTHFR Interpretation MTHFR Reviewed By 09/10/17 09/10/17 09/10/17 06:31 07:17 07:45 WBC RBC Hgb Hct MCV MCH MCHC RDW Plt Count ESR APTT Factor V Sodium Potassium Chloride Carbon Dioxide Anion Gap BUN Creatinine Est GFR ( Amer) Est GFR (Non-Af Amer) POC Glucose (mg/dL) Random Glucose Hemoglobin A1c Calcium Total Bilirubin AST ALT Alkaline Phosphatase Troponin I 2.1400 H* C-React Prot High Sens Total Protein Albumin Globulin Albumin/Globulin Ratio Triglycerides 114 Cholesterol 154 LDL Cholesterol Direct 94 HDL Cholesterol 32 Vitamin B12 365 RPR Nonreactive MTHFR DNA Mutation Anal MTHFR Interpretation MTHFR Reviewed By 09/10/17 09/10/17 09/10/17 13:38 13:38 13:38 WBC RBC Hgb Hct MCV MCH MCHC RDW Plt Count ESR APTT 41.4 H Factor V TNP Sodium Potassium Chloride Carbon Dioxide Anion Gap BUN Creatinine Est GFR ( Amer) Est GFR (Non-Af Amer) POC Glucose (mg/dL) Random Glucose Hemoglobin A1c Calcium Total Bilirubin AST ALT Alkaline Phosphatase Troponin I C-React Prot High Sens Total Protein Albumin Globulin Albumin/Globulin Ratio Triglycerides Cholesterol LDL Cholesterol Direct HDL Cholesterol Vitamin B12 RPR MTHFR DNA Mutation Anal TNP MTHFR Interpretation TNP MTHFR Reviewed By [place] 09/10/17 09/10/17 09/10/17 15:59 20:41 20:55 WBC RBC Hgb Hct MCV MCH MCHC RDW Plt Count ESR APTT 60.6 H D Factor V Sodium Potassium Chloride Carbon Dioxide Anion Gap BUN Creatinine Est GFR ( Amer) Est GFR (Non-Af Amer) POC Glucose (mg/dL) 114 H 128 H Random Glucose Hemoglobin A1c Calcium Total Bilirubin AST ALT Alkaline Phosphatase Troponin I C-React Prot High Sens Total Protein Albumin Globulin Albumin/Globulin Ratio Triglycerides Cholesterol LDL Cholesterol Direct HDL Cholesterol Vitamin B12 RPR MTHFR DNA Mutation Anal MTHFR Interpretation MTHFR Reviewed By 09/11/17 09/11/17 09/11/17 05:22 05:45 05:45 WBC 8.0 RBC 4.30 L Hgb 12.2 Hct 36.2 MCV 84.3 MCH 28.4 MCHC 33.7 RDW 13.2 Plt Count 287 ESR APTT Factor V Sodium 141 Potassium 4.2 Chloride 104 Carbon Dioxide 29 Anion Gap 12 BUN 12 Creatinine 1.0 Est GFR ( Amer) > 60 Est GFR (Non-Af Amer) > 60 POC Glucose (mg/dL) 129 H Random Glucose 132 H Hemoglobin A1c Calcium 9.0 Total Bilirubin 0.6 AST 32 ALT 29 Alkaline Phosphatase 48 Troponin I C-React Prot High Sens Total Protein 6.9 Albumin 3.7 Globulin 3.2 Albumin/Globulin Ratio 1.2 Triglycerides Cholesterol LDL Cholesterol Direct HDL Cholesterol Vitamin B12 RPR MTHFR DNA Mutation Anal MTHFR Interpretation MTHFR Reviewed By
[2017-09-11 08:44] LABS: HOMOCYSTEINE 9.1 umol/L (<11.4)
--- NOTE | 2017-09-11 08:45 | PN ---
DATE: 09/11/2017 SUBJECTIVE: The patient is seen and examined. Interim events noted. Consults noted and appreciated. Cardiology followup and intervention noted and appreciated. The patient remains in Progressive Care Unit on telemetry monitoring. The patient feels okay. Denies any chest pain, shortness of breath or any new weakness. PHYSICAL EXAMINATION: GENERAL: The patient is in no acute distress. VITAL SIGNS: Stable. HEART: S1 and S2, normal and regular. LUNGS: Good bilateral air exchange. ABDOMEN: Soft, nontender. EXTREMITIES: No edema. No calf swelling. No tenderness. No acute ischemia. CENTRAL NERVOUS SYSTEM: Essentially unchanged. DIAGNOSTIC DATA: Available diagnostic data reviewed. Cardiology and Neurology followup and intervention noted and appreciated. Case discussed with neurologist. Telemetry monitoring does not reveal significant arrhythmias. ASSESSMENT AND PLAN: Overall, the patient is clinically stable. Plan as ordered. Amanuel Mane MD
[2017-09-11] MEDS: Pantoprazole 40 mg EC Tab PO SCH (08:53)
[2017-09-11] MEDS: CYANOCOBALAMIN 500 MCG TAB PO SCH (08:53)
--- NOTE | 2017-09-11 15:17 | CON ---
DATE: 09/11/2017 REASON FOR THE CONSULTATION: Headache and previous hemorrhagic stroke. HISTORY OF PRESENT ILLNESS: Mr. Gunner Crump is a 57-year-old right-handed male, in usual state of health, brought into [facility] with history of frontal headache with vomiting for one night. The patient also had 3 times of vomiting prior to the day of admission. He denies headache at present. No visual or bulbar dysfunction. No focal weakness. Considering his previous history of hemorrhagic stroke, I was called in to evaluate him as well as for his headache. Initial CT of the head showed subacute process of stroke at left occipital lobe with right frontal encephalomalacia from previous insult. PAST MEDICAL HISTORY: Diabetic mellitus, status post bypass surgery resulting hemorrhagic stroke 7 years ago. REVIEW OF SYSTEMS: Twelve-point system being reviewed. From neuro, headache. MEDICATION: Aspirin, Coreg, vitamin B12, Dexilant, vitamin D, Jentadueto, Cozaar and Actos. PHYSICAL EXAMINATION: VITAL SIGNS: Blood pressure 113/73, mean arterial pressure of 86, respiratory rate 18, temperature 98.5, pulse rate 73. NECK: Supple. No carotid bruit. HEART: Sounds regular. CHEST: Fair air entry. EXTREMITIES: No edema of legs. NEUROLOGICAL: Mental status examination: He is awake, alert, oriented to person, place and time. Speech is clear. Naming, repetition, fluency, comprehension, all within normal. No sign of visual agnosia or apraxia. Cranial nerve examination: Visual field intact. Pupils are reactive to light. Extraocular movement normal. No nystagmus. No facial sensory deficit. No facial asymmetry. Hearing is normal. Tongue is midline. Good gag. Motor examination: On outstretched hand with eyes closed, no drift noted. Power is symmetric on either side. Deep tendon reflexes: Biceps, brachioradialis, triceps, knee and ankle, all are absent. Plantars are equivocal response on both sides. 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 Coordination: [id number] test is intact. WORKUP: CT of the head, as mentioned above. 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 BLOOD WORKUP: WBC 8.0, hemoglobin 12.2, hematocrit 36.2, platelets 287. PT 12.5, PTT 60.6. Sodium 141, potassium 4.2, chloride 104, bicarbonate 29, BUN 12, creatinine 1.0, GFR more than 60, glucose 129. Recent troponin is . CRP 10.73. TSH 0.38. Cholesterol 154, HDL 32, LDL 94. CONCLUSION: Mr. Gunner Crump is presenting with headache with vomiting, which is probably secondary to viral syndrome. However, the patient does show ischemic process as per the CAT scan and MRI of the brain. It is hard to predict this even related to his problem; however, posterior cerebral artery territory could be related to his dizziness, nausea, vomiting as well. RECOMMENDATION: 1. Continue antiplatelet and heparin as per the cardiac recommendation. 2. Please consider to keep his PTT around 50 to 60. Rest of the medication can be continued as he has been getting it. 3. Diabetic control. The patient is neurologically stable at present, though he has radiological evidence of stroke. Clinically, he does not show any deficits. Jeromy Ponce MD
[2017-09-11] MEDS: Heparin 25,000units in D5W 25,000 UNITS/250 ML BAG IV SCH ×2 (17:16→17:57)
[2017-09-12 07:39] LABS: HEMATOCRIT 38.6 % (35.0-51.0); MEAN CELL VOLUME 83.9 fl (80.0-94.0); MEAN CORPUSCULAR HEMOGLOBIN 28.5 pg (27.0-31.0); MEAN CORPUSCULAR HGB CONC 33.9 g/dL (33.0-37.0); RED CELL DISTRIBUTION WIDTH 13.3 % (11.5-14.5)
--- NOTE | 2017-09-12 08:06 | PN ---
DATE: 09/12/2017 SUBJECTIVE: The patient is seen and examined. Interim events noted. The patient remains in Transitional Care Unit on telemetry monitoring. Neurology consult noted and appreciated. The patient feels okay. Denies any specific complaint of chest pain, shortness of breath, headache, vomiting, nausea, dizziness or any weakness. PHYSICAL EXAMINATION: GENERAL: The patient is in no acute distress. VITAL SIGNS: Stable. HEART: S1 and S2, normal and regular. LUNGS: Good bilateral air exchange. ABDOMEN: Soft, nontender. EXTREMITIES: No edema. No calf swelling. No tenderness. No acute ischemia. CENTRAL NERVOUS SYSTEM: Essentially unchanged. DIAGNOSTIC DATA: Available diagnostic data reviewed. PTT is 59.6. ASSESSMENT AND PLAN: Overall, the patient is clinically stable. Plan as ordered. Amanuel Mane MD
[2017-09-12 08:12] LABS: ALB/GLOB RATIO 1.2 (1.0-2.1); ALKALINE PHOSPHATASE 50 U/L (38-126); ALT/SGPT 37 U/L (21-72); AST/SGOT 30 U/L (17-59); BILIRUBIN,TOTAL 0.5 mg/dl (0.2-1.3); BLOOD UREA NITROGEN 11 mg/dl (9-20); CALCIUM 9.5 mg/dL (8.4-10.2); CARBON DIOXIDE 30 mmol/L (22-30); CHLORIDE 103 mmol/L (98-107); GFR AFRICAN-AMERICAN > 60; GLUCOSE,RANDOM 144 mg/dL (75-110); POTASSIUM 4.1 MMOL/L (3.6-5.0); SODIUM 142 mmol/l (132-148); TOTAL PROTEIN 7.4 G/DL (6.3-8.2)
[2017-09-12] MEDS: Pantoprazole 40 mg EC Tab PO SCH (08:36)
[2017-09-12 08:37] LABS: PARTIAL THROMBOPLASTIN TIME 69.4 Seconds (25.6-37.1)
[2017-09-12] MEDS ORDERED: Ergocalciferol 50,000 Intl Units Cap PO SCH (09:00)
[2017-09-12] MEDS: CYANOCOBALAMIN 500 MCG TAB PO SCH (11:07)
[2017-09-12] MEDS: Heparin 25,000units in D5W 25,000 UNITS/250 ML BAG IV SCH (11:08)
--- NOTE | 2017-09-12 15:44 | CP.PCM.PN ---
Subjective - Date & Time of Evaluation Date of Evaluation: 09/12/17 Time of Evaluation: 15:42 - Subjective Subjective: The patient is sitting up out of bed with his present during the encounter. He has no chest pain or shortness of breath. Objective - Vital Signs/Intake and Output Vital Signs (last 24 hours): Temp Pulse Resp BP Pulse Ox 98.2 F 68 18 121/69 100 09/12/17 12:00 09/12/17 12:00 09/12/17 12:00 09/12/17 12:00 09/12/17 12:00 Intake and Output: 09/12/17 09/12/17 06:59 18:59 Intake Total 168 250 Balance 168 250 - Medications Medications: Current Medications Aspirin (Ecotrin) 81 mg PO DAILY [facility] Last Admin: 09/12/17 08:35 Dose: 81 mg Atorvastatin Calcium (Lipitor) 40 mg PO DAILY [facility] Last Admin: 09/12/17 08:37 Dose: 40 mg Carvedilol (Coreg) 3.125 mg PO Q12H [facility] Last Admin: 09/12/17 11:00 Dose: 3.125 mg Cyanocobalamin (Vitamin B12) 250 mcg PO DAILY [facility] Last Admin: 09/12/17 11:07 Dose: 250 mcg Ergocalciferol (Drisdol 50,000 Intl Units Cap) 1 cap PO SUN [facility] Last Admin: 09/12/17 08:36 Dose: 1 cap Heparin Sodium/Dextrose (Heparin 25,000 Units/250ml In D5w) 25,000 units in 250 mls @ 14 mls/hr IV .[id number] [facility] PRN Reason: Protocol Last Admin: 09/12/17 11:08 Dose: 12 mls/hr Losartan Potassium (Cozaar) 25 mg PO DAILY [facility] Last Admin: 09/12/17 08:35 Dose: 25 mg Metformin HCl (Glucophage) 1,000 mg PO BID [facility] Last Admin: 09/10/17 09:39 Dose: 1,000 mg Pantoprazole Sodium (Protonix Ec Tab) 40 mg PO DAILY [facility] Last Admin: 09/12/17 08:36 Dose: 40 mg Pioglitazone HCl (Actos) 45 mg PO QPM [facility] Last Admin: 09/11/17 17:26 Dose: 45 mg Sitagliptin Phosphate (Januvia) 100 mg PO DAILY [facility] Last Admin: 09/12/17 08:37 Dose: 100 mg - Labs Labs: 09/12/17 06:30 09/12/17 06:30 PT 12.2 Seconds (9.8-13.1) 09/12/17 06:30 INR 1.1 (0.9-1.2) 09/12/17 06:30 APTT 69.4 Seconds (25.6-37.1) H D 09/12/17 06:30 - Constitutional Appears: Non-toxic, No Acute Distress - Eye Exam Eye Exam: EOMI, PERRL Pupil Exam: PERRL - ENT Exam ENT Exam: Mucous Membranes Moist - Respiratory Exam Respiratory Exam: Clear to Ausculation Bilateral, NORMAL BREATHING PATTERN - Cardiovascular Exam Cardiovascular Exam: REGULAR RHYTHM, +S1, +S2 - GI/Abdominal Exam GI & Abdominal Exam: Normal Bowel Sounds - Exam External exam: NORMAL EXTERNAL EXAM - Extremities Exam Extremities Exam: Full ROM - Neurological Exam Neurological Exam: CN II-XII Intact, Oriented x3 - Psychiatric Exam Psychiatric exam: Normal Affect Assessment and Plan - Assessment and Plan (Free Text) Assessment: 1. CVA. 2. CAD s/p CABG. 3. Hypertension. Plan: 1. Continue present medications. 2. Given the recent CVA; would hold off on cath unless new symptoms arise.
[2017-09-12] MEDS ORDERED: Heparin 25,000units in D5W 25,000 UNITS/250 ML BAG IV SCH (18:15)
[2017-09-13 05:11] VITALS: RESP 18
[2017-09-13 05:49] LABS: HEMATOCRIT 37.2 % (35.0-51.0); MEAN CORPUSCULAR HEMOGLOBIN 27.9 pg (27.0-31.0); MEAN CORPUSCULAR HGB CONC 32.9 g/dL (33.0-37.0); RED CELL DISTRIBUTION WIDTH 13.5 % (11.5-14.5); WHITE BLOOD COUNT 7.3 K/uL (4.8-10.8)
[2017-09-13 06:13] LABS: PARTIAL THROMBOPLASTIN TIME 59.9 Seconds (25.6-37.1)
[2017-09-13 06:21] LABS: ALB/GLOB RATIO 1.3 (1.0-2.1); ALKALINE PHOSPHATASE 44 U/L (38-126); ALT/SGPT 60 U/L (21-72); AST/SGOT 42 U/L (17-59); BILIRUBIN,TOTAL 0.4 mg/dl (0.2-1.3); BLOOD UREA NITROGEN 14 mg/dl (9-20); CALCIUM 9.2 mg/dL (8.4-10.2); CARBON DIOXIDE 31 mmol/L (22-30); CHLORIDE 102 mmol/L (98-107); GFR AFRICAN-AMERICAN > 60; GLUCOSE,RANDOM 153 mg/dL (75-110); POTASSIUM 4.4 MMOL/L (3.6-5.0); SODIUM 142 mmol/l (132-148); TOTAL PROTEIN 6.8 G/DL (6.3-8.2)
[2017-09-13 08:01] VITALS: O2SAT 98
--- NOTE | 2017-09-13 09:01 | PN ---
DATE: 09/13/2017 SUBJECTIVE: The patient is seen and examined. Interim events noted. Consults noted and appreciated. Cardiology followup and intervention noted and appreciated. The patient remains in Progressive Care Unit on telemetry monitoring. Denies any specific complaint of chest pain or shortness of breath or dizziness or loss of consciousness. PHYSICAL EXAMINATION: GENERAL: The patient is in no acute distress. VITAL SIGNS: Stable. HEART: S1 and S2, normal and regular. LUNGS: Good bilateral air exchange. ABDOMEN: Soft, nontender. EXTREMITIES: No edema. No calf swelling. No tenderness. No acute ischemia. CENTRAL NERVOUS SYSTEM: Essentially unchanged. DIAGNOSTIC DATA: Available diagnostic data reviewed. Telemetry monitoring does not reveal significant arrhythmias. ASSESSMENT AND PLAN: Plan as ordered. Amanuel Mane MD
[2017-09-13] MEDS: CYANOCOBALAMIN 500 MCG TAB PO SCH (09:22)
[2017-09-13] MEDS: Pantoprazole 40 mg EC Tab PO SCH (09:24)
--- NOTE | 2017-09-13 09:31 | CP.PCM.PCO ---
Assessment & Plan - Assessment and Plan (Free Text) Assessment: 57 yr old M with PMHx DM II, HTN, CAD s/p CABG, Hemorragic cva admitted with NSTEMI, acute Lobar infarct (emblic) pt. doing well this morning, sitting oob to chair. Denies weakness, numbness, visual or speech changes. denies sob,cp, dizziness pt. cleared for discharge to home today by , and started on ASA/Plavix cont. current meds (see reconciliation) Erx sent to pharmacy pt., will f/u with pmd and outpatient d/c Home w/ services
[2017-09-13 12:08] VITALS: BP 112/71; PULSE 77; TEMP 97.5
[2017-09-14 05:00] LABS: CARDIOLIPIN AB (IGA) <11 APL (<=11)
[2017-09-14 06:14] LABS: B2 GLYCOPROTEIN I AB(IGA) <9 SAU (<=20); B2 GLYCOPROTEIN I AB(IGG) <9 SGU (<=20); B2 GLYCOPROTEIN I AB(IGM) <9 SMU (<=20); PHOSPHATIDYLSERINE AB IGA <20 U/mL (<20); PHOSPHATIDYLSERINE AB IGM <25 U/mL (<25)
== END 2017-09-13 13:58 | disposition home or self-care (01) | DRG 280 ==
LOC: H.ER 15:46 → H.ERHOLD 18:02 → H.TEL 21:37
PROVIDERS: ADMIT Family Medicine; ATTEND Family Medicine
DX: I21.4 Non-ST elevation (NSTEMI) myocardial infarction (principal); I63.439 Cerebral infarction due to embolism of unspecified posterior cerebral artery; E11.9 Type 2 diabetes mellitus without complications; E78.5 Hyperlipidemia, unspecified; I10 Essential (primary) hypertension; I25.10 Atherosclerotic heart disease of native coronary artery without angina pectoris; Z95.1 Presence of aortocoronary bypass graft; Z86.73 Personal history of transient ischemic attack (TIA), and cerebral infarction without residual deficits; Z79.82 Long term (current) use of aspirin